=== PATIENT | female | born 1995 | race Caucasian/White ===

== ENCOUNTER 2024-01-03 09:08 | Emergency (ER) | payer MEDICAID ==
[~2024-01-03] VITALS: Ht 160 cm; Wt 60.0 kg
[2024-01-03 09:19] VITALS: O2SAT 98
[2024-01-03 09:51] LABS: CLARITY URINE CLOUDY (CLEAR); COLOR URINE YELLOW (YELLOW); GLUCOSE URINE NEGATIVE (NEGATIVE); KETONES URINE NEGATIVE (NEGATIVE); LEUKOCYTE ESTERASE URINE 2+ (NEGATIVE); NITRITE URINE NEGATIVE (NEGATIVE); OCCULT BLOOD URINE NEGATIVE (NEGATIVE); PROTEIN URINE TRACE (NEGATIVE); SPECIFIC GRAVITY URINE 1.018 (1.005-1.030)
[2024-01-03] MEDS ORDERED: MAGNESIUM/ALUMINUM HYDROXIDE/SIMETHICONE 30ML UDC PO STA (09:51)
[2024-01-03] MEDS ORDERED: DICYCLOMINE 10 MG/5 ML ORAL SYR PO STA (09:51)
[2024-01-03 10:14] LABS: RBC URINE NONE SEEN /hpf (0-2); WBC URINE 15-25 /hpf (0-2)
[2024-01-03 10:15] LABS: BACTERIA URINE 2+; SQUAMOUS EPITHELIAL CELL URINE 2+ /lpf (RARE/1+)
[2024-01-03] MEDS: DICYCLOMINE HCL 10MG CAPSULE PO SCH (10:15)
[2024-01-03] MEDS ORDERED: HYDR-4001 MT (11:28)
[2024-01-03] MEDS ORDERED: IBUP-2029 MT (11:28)
[2024-01-03] MEDS ORDERED: CEPH500C2 MT (11:28)
[2024-01-03] MEDS: MAGNESIUM/ALUMINUM HYDROXIDE/SIMETHICONE 30ML UDC PO NR (11:40)
[2024-01-03] MEDS: KETOROLAC 30MG/ML VIAL IM ONE (11:45)
[2024-01-03 11:55] LABS: BASOPHILS % 0.4 % (0.0-2.0); EOSINOPHILS % 1.8 % (0.0-5.0); HEMATOCRIT. 38.3 % (36.0-48.0); HEMOGLOBIN. 12.3 g/dL (12.0-16.0); LYMPHOCYTES % 28.1 % (20.0-50.0); MEAN CORPUSCULAR HEMOGLOBIN 29.2 pg (28.0-32.0); MEAN CORPUSCULAR HGB CONC 32.2 g/dL (31.0-37.0); MEAN CORPUSCULAR VOLUME 90.6 fL (81.0-99.0); MEAN PLATELET VOLUME 8.2 fl (7.4-10.4); MONOCYTES % 8.6 % (2.0-8.0); NEUTROPHILS % 61.1 % (40.0-76.0); PLATELET 292 x1000/uL (130-400); RED BLOOD CELL COUNT 4.23 mill/uL (4.2-5.4); RED CELL DISTRIBUTION WIDTH 14.1 % (11.6-14.6); WHITE BLOOD COUNT 6.7 x1000/uL (4.5-11.0)
[2024-01-03 11:58] LABS: CHLORIDE 109 mEq/L (98-107); POTASSIUM 4.3 mEq/L (3.5-5.1); SODIUM 140 mEq/L (136-145)
[2024-01-03 11:59] LABS: CALCIUM 9.3 mg/dL (8.7-10.4); CARBON DIOXIDE 26 mEq/L (21-32)
[2024-01-03 12:04] LABS: CREATININE 0.6 mg/dL (0.6-1.0); GLUCOSE 89 mg/dL (70-105); UREA NITROGEN BLOOD 11 mg/dL (9-23)
[2024-01-03 12:32] VITALS: BP 100/58; PULSE 70; RESP 16; TEMP 36.94740; O2SAT 98
== END 2024-01-03 12:33 | disposition home or self-care (01) ==
LOC: ER 09:08
DX: N39.0 Urinary tract infection, site not specified (principal)
CPT/HCPCS: 99285; 76705; 80048; 81003; 81025; 85025; 87086; 36415; 96372; J1885